=== PATIENT | female | born 1985 | race American Indian/Alaskan Native ===

== ENCOUNTER 2021-06-28 00:29 | Emergency (ER) | payer SELFPAY ==
[2021-06-28 03:59] LABS: Bacteria,Urine 2+ /HPF (Negative); Bilirubin,Urine NEG (Negative); Blood,Urine SM (Negative); Color,Urine Yellow (Yellow); Mucus,Urine FEW /HPF; Protein,Urine <15 mg/dL mg/dL (Negative)
[2021-06-28 04:06] LABS: HCG Qualitative,Urine Negative (Negative)
[2021-06-28] MEDS ORDERED: LIDOCAINE-MPF (1%) 10 MG/1 ML VIAL 5 ML INFILTRATI ONE (04:27)
--- NOTE | 2021-06-28 04:30 | Emergency Department Report ---
ED Female HPI - General Chief complaint: Urogenital-Female Stated complaint: KIDNEY PAIN BURNING/DISCHARGE/PAIN WITH URINATION Source: patient Mode of arrival: Ambulatory Limitations: No Limitations - History of Present Illness Initial comments: Patient is a 36-year-old -German female with no past medical history presents to the ED with complaint of acute onset persistent urinary frequency and urgency, dysuria, vaginal discharge and suprapubic pressure for the last 1 week. Patient states that she would like to be treated for STD because she also got exposed to an individual who she suspects may have had an STD. Patient also states that the symptoms of worsened in the last 3 days. Patient denies fever, chills, nausea, vomiting, diarrhea, dizziness, syncope, chest pain, shortness of breath or vaginal bleeding. MD Complaint: vaginal discharge, dysuria, pelvic pain (Suprapubic pressure), possible STD, other (Urinary frequency and urgency) -: Sudden, week(s) (1) Location: suprapubic, other (Vaginal) Radiation: non-radiating Severity: moderate Severity scale (0 -10): 4 Quality: other (Pressure) Consistency: constant Improves with: none Worsens with: urination Are you Now?: No Last Menstrual Period: 06/03/21 EDC: 03/10/22 Associated Symptoms: vaginal discharge, abdominal pain (Suprapubic pressure), dysuria. denies: nausea/vomiting, fever/chills, headaches, loss of appetite, hematuria, rash, seizure, shortness of breath, syncope - Related Data Sexually active: Yes : 4 Para: 4 A: 0 Previous Rx's Medication Instructions Recorded Last Taken Type Doxycycline Hyclate 100 mg PO Q12H #28 tablet. 06/28/21 Unknown Rx Fluconazole [Diflucan TAB] 200 mg PO QDAY #2 tablet 06/28/21 Unknown Rx metroNIDAZOLE [Flagyl] 500 mg PO Q12HR #14 tab 06/28/21 Unknown Rx Allergies Allergy/AdvReac Type Severity Reaction Status Date / Time No Known Allergies Allergy Verified 06/28/21 01:40 ED Review of Systems ROS: Stated complaint: KIDNEY PAIN BURNING/DISCHARGE/PAIN WITH URINATION Other details as noted in HPI Constitutional: denies: chills, fever Eyes: denies: eye pain, eye discharge, vision change ENT: denies: ear pain, throat pain Respiratory: denies: cough, shortness of breath, wheezing Cardiovascular: denies: chest pain, palpitations Endocrine: no symptoms reported Gastrointestinal: abdominal pain (Suprapubic pressure). denies: nausea, vomiting, diarrhea, constipation Genitourinary: urgency, dysuria, frequency, discharge. denies: abnormal menses, dyspareunia, other Musculoskeletal: denies: back pain, joint swelling, arthralgia Skin: denies: rash, lesions Neurological: denies: headache, weakness, paresthesias Psychiatric: denies: anxiety, depression Hematological/Lymphatic: denies: easy bleeding, easy bruising ED Past Medical Hx - Past Medical History Previous Medical History?: No - Surgical History Past Surgical History?: No - Social History Smoking Status: Current Every Day Smoker Substance Use Type: None - Medications Home Medications: Home Medications Medication Instructions Recorded Confirmed Last Taken Type Doxycycline Hyclate 100 mg PO Q12H #28 tablet. 06/28/21 Unknown Rx Fluconazole [Diflucan TAB] 200 mg PO QDAY #2 tablet 06/28/21 Unknown Rx metroNIDAZOLE [Flagyl] 500 mg PO Q12HR #14 tab 06/28/21 Unknown Rx ED Physical Exam - General Limitations: No Limitations General appearance: alert, in no apparent distress - Head Head exam: Present: atraumatic, normocephalic, normal inspection - Eye Eye exam: Present: normal appearance, PERRL, EOMI Pupils: Present: normal accommodation - ENT ENT exam: Present: normal exam, normal orophraynx, mucous membranes moist, TM's normal bilaterally, normal external ear exam - Neck Neck exam: Present: normal inspection, full ROM - Respiratory Respiratory exam: Present: normal lung sounds bilaterally. Absent: respiratory distress, wheezes, rales, chest wall tenderness, accessory muscle use, decreased breath sounds, prolonged expiratory - Cardiovascular Cardiovascular Exam: Present: regular rate, normal rhythm, normal heart sounds. Absent: systolic murmur, diastolic murmur, rubs, gallop - GI/Abdominal GI/Abdominal exam: Present: soft, normal bowel sounds. Absent: tenderness, guarding, rebound, hyperactive bowel sounds, hypoactive bowel sounds, organomegaly - Bi-manual exam: Present: other (Pelvic exam deferred, patient preferred to self swab) - Extremities Exam Extremities exam: Present: normal inspection, full ROM, normal capillary refill - Back Exam Back exam: Present: normal inspection, full ROM. Absent: tenderness, CVA tenderness (R), CVA tenderness (L), muscle spasm, paraspinal tenderness - Neurological Exam Neurological exam: Present: alert, oriented X3, CN II-XII intact, normal gait, reflexes normal - Psychiatric Psychiatric exam: Present: normal affect, normal mood - Skin Skin exam: Present: warm, dry, intact, normal color. Absent: rash ED Course Vital Signs 06/28/21 01:36 Temperature 98.3 F Pulse Rate 66 Respiratory 16 Rate Blood Pressure 116/68 O2 Sat by Pulse 100 Oximetry ED Medical Decision Making - Medical Decision Making This is a 36-year-old -German female with no past medical history presents to the ED with complaint of acute onset persistent urinary frequency and urgency, dysuria, vaginal discharge and suprapubic pressure for the last 1 week. Patient states that she would like to be treated for STD because she also got exposed to an individual who she suspects may have had an STD. Patient also states that the symptoms of worsened in the last 3 days. In the ED, patient is alert and oriented x3 and is not in any distress. And wet prep was positive for urinalysis showed urinary tract infection bacterial vaginosis. Patient was therefore treated empirically with Rocephin 1 g intramuscular injection for suspected STD, gonorrhea having been exposed to the same. Patient was thereafter discharged home on antibiotics doxycycline and Flagyl and Diflucan and advised to follow-up with her [employer] physician or [facility] department for further STD testing including HIV and syphilis. Patient was advised return to the ED immediately if symptoms get worse. - Differential Diagnosis UTI; chlamydia; gonorrhea; trichomonas; bacterial vaginosis; Nilsa Critical care attestation.: If time is entered above; I have spent that time in minutes in the direct care of this critically ill patient, excluding procedure time. ED Disposition Clinical Impression: Acute urinary tract infection, Bacterial vaginosis, Vaginitis due to Nilsa, Exposure to STD Disposition: HOME / SELF CARE / HOMELESS Is pt being admited?: No Does the pt Need Aspirin: No Condition: Stable Instructions: Bacterial Vaginosis (ED), Bacterial Vaginosis, [id number], Urinary Tract Infection, Adult, [id number], Vaginitis, [id number], Safe Sex, Gonorrhea, Chlamydia, Female, [id number] Additional Instructions: Urinalysis showed significant urinary tract infection and wet prep tests showed bacterial vaginosis. Therefore take pain medications with food, drink plenty of fluids and follow-up with your primary care physician in 7 to 10 days for reevaluation. Consider following up with the [facility] department for further STD testing including HIV and syphilis. Return to the ED immediately if symptoms get worse. Prescriptions: Fluconazole [Diflucan TAB] 200 mg PO QDAY #2 tablet Doxycycline Hyclate 100 mg PO Q12H #28 tablet. metroNIDAZOLE [Flagyl] 500 mg PO Q12HR #14 tab Referrals: [facility] Depart [Outside] - 7-10 days Forms: STI Treatment and Prevention Time of Disposition: 04:34 Print Language: PORTUGUESE
[2021-06-28 06:01] VITALS: BP 117/66
== END 2021-06-28 06:00 | disposition home or self-care (01) ==
LOC: ED 00:29
DX: N39.0 Urinary tract infection, site not specified (principal); N77.1 Vaginitis, vulvitis and vulvovaginitis in diseases classified elsewhere; Z20.2 Contact with and (suspected) exposure to infections with a predominantly sexual mode of transmission; F17.200 Nicotine dependence, unspecified, uncomplicated
CPT/HCPCS: 81001; 81025; 87076; 87086; 87186; 87210; 96372; 99283; J0696